=== PATIENT | male | born 1965 | race Two or more races ===

== ENCOUNTER 2023-06-17 07:17 | Emergency (ER) | payer OTHER ==
[~2023-06-17] VITALS: Ht 180.3 cm; Wt 93.6 kg
--- OUTSIDE RECORDS SUMMARY | 2023-06-17 07:20 | XMS ---
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 E.[facility]aris VISIT COUNT (12 MO.) [address] [place] [address] Emergency [place] TOTAL 2 NOTE: Visits indicate total known visits. ED/UCC VISIT TRACKING (12 MO.) 06/17/2023 07:17 [facility] TYPE: Emergency COMPLAINT: - CHEST PAIN 05/22/2023 19:31 [facility] TYPE: Emergency DIAGNOSES: - Generalized abdominal pain - Noninfective gastroenteritis and colitis, unspecified - Other specified diseases of liver - Umbilical hernia without obstruction or gangrene - Abdominal Pain - abdominal pain, diarrhea INPATIENT VISIT TRACKING (12 MO.) No inpatient visits to display in this time frame [email or web address]
[2023-06-17] MEDS ORDERED: OMEPRAZOLE20 MG PO (07:21)
[2023-06-17 08:03] LABS: RBC 5.49 M/ul (4.3-5.7)
[2023-06-17 08:06] LABS: BASOPHILS 0.2 % (0-2); EOSINOPHILS 1.1 % (0-6); HEMATOCRIT 48.2 % (35.0-50.0); LYMPHOCYTES 30.9 % (24-44); MCH 29.2 (27-36); MCHC 33.3 g/dl (30-36); MCV 87.8 fl (81-99); NEUTROPHILS 60.8 % (39-80); PLATELET COUNT 179 K/uL (140-440)
[2023-06-17 08:20] LABS: ALBUMIN/GLOBULIN RATIO 1.33 (1.1-2.4); ALKALINE PHOSPHATASE 90 U/L (46-116); ALT (SGPT) 30 U/L (14-59); ANION GAP 11.6 (7-21); AST (SGOT) 13 U/L (15-37); BILIRUBIN, TOTAL 0.7 ng/dL (0.2-1.0); BUN/CREATININE RATIO 16.66 (6.0-28.6); CALCIUM 8.6 mg/dL (8.5-10.1); CARBON DIOXIDE 29 mmol/L (21-32); CHLORIDE 104 mmol/L (98-107); CREATININE, SERUM 0.96 mg/dL (0.70-1.30); GLOMERULAR FILTRATION RATE,EST 93 mL/min (>60); POTASSIUM 4.6 mmol/L (3.5-5.1); UREA NITROGEN 16 mg/dL (7-18)
[2023-06-17 09:29] VITALS: BP 113/87
--- NOTE | 2023-06-17 11:56 | EKG ---
[facility] [address] [facility] [place], [place] [address] Signed Normal sinus rhythm Normal ECG No previous ECGs available Confirmed by TIKI WINN MD ([id number]) on 06/17/2023 11:55:51 AM Electronically Signed By: TIKI WINN 06/17/23 1156 PATIENT NAME: DENYS TRUJILLOLOU Electrocardiogram DATE OF : 67 PHYSICIAN: TIKI WINN REPORT #: [id number] REPORT IS CONFIDENTIAL AND NOT TO BE RELEASED WITHOUT AUTHORIZATION
== END 2023-06-17 09:27 | disposition home or self-care (01) ==
LOC: ED 07:17
PROVIDERS: Emergency Medicine
DX: R07.9 Chest pain, unspecified (principal); Z79.899 Other long term (current) drug therapy
CPT/HCPCS: 36415; 71045; 80053; 80307; 84484; 85025; 85379; 86850; 86900; 86901; 93005; 93010; 99285-25; G0480